=== PATIENT | female | born 1935 | race Caucasian/White ===

== ENCOUNTER 2019-06-29 16:18 | Inpatient (IN) | payer MEDICARE, BC ==
[~2019-06-29] VITALS: Ht 162.6 cm; Wt 97.5 kg
[2019-06-29] MEDS ORDERED: heparin 10,000 units/1 ML INJ IV ONE (17:15)
[2019-06-29] MEDS ORDERED: insulin regular, human 10 units/0.1 ml syringe IV ONE (17:25)
--- NOTE | 2019-06-29 17:33 | NUR ---
PHARMACIST WILL CALL [facility] IN [place] FOR CURRENT MED LIST AND DOSES.
[2019-06-29] MEDS ORDERED: ATOR20TA66 PO (17:40)
[2019-06-29] MEDS ORDERED: HYDR-3964 PO (17:40)
[2019-06-29] MEDS ORDERED: magnesium 2GM in 50ml NS 50 ML IV PRN (18:05)
[2019-06-29] MEDS ORDERED: potassium Cl 20 mEq SR tablet PO PRN ×2 (18:05)
[2019-06-29] MEDS ORDERED: potassium CL 10mEq/100ml bag 100 ML IV PRN ×2 (18:05)
[2019-06-29] MEDS ORDERED: magnesium Cl slow-release 64mg tablet PO PRN (18:05)
[2019-06-29] MEDS ORDERED: magnesium 4gm in 100ml NS 100 ML IV PRN (18:05)
[2019-06-29] MEDS ORDERED: mag hydrox/Alum hydrox/simeth 30ml oral suspension PO PRN (18:05)
[2019-06-29] MEDS ORDERED: acetaminophen 325mg tablet PO PRN (18:05)
[2019-06-29] MEDS ORDERED: heparin 25,000 UNIT/250ml bag 250 ML IV SCH (18:09)
[2019-06-29] MEDS: heparin 25,000 UNIT/250ml bag 250 ML IV SCH (18:13)
[2019-06-29 18:14] LABS: BASOPHILS # (AUTO) 0.1 X10'3 (0-0.2); MEAN PLATELET VOLUME 7.9 FL (7.4-10.4)
[2019-06-29] MEDS ORDERED: glucagon, human recombinant 1mg kit SUBCUT PRN (18:15)
[2019-06-29] MEDS ORDERED: dextrose 50%-water 50ml dispensing syringe IV PRN ×2 (18:15)
[2019-06-29] MEDS ORDERED: MESSAGE TO PHARMACY PO ONE (18:15)
[2019-06-29] MEDS ORDERED: dextrose ORAL solution 15 GM/59 ML bottle PO PRN ×2 (18:15)
[2019-06-29 18:16] LABS: BASOPHILS % (AUTO) 0.3 % (0-1); EOSINOPHILS % (AUTO) 0.1 % (0-6); HEMATOCRIT 39.5 % (35.0-45.0); LYMPHOCYTES # (AUTO) 2.3 X10'3 (1.1-4.8); LYMPHOCYTES % (AUTO) 11.2 % (21-51); MEAN CORPUSCULAR HEMOGLOBIN 27.4 PG (27.0-31.0); MEAN CORPUSCULAR HGB CONC 32.9 g/dL (33.0-36.5); MEAN CORPUSCULAR VOLUME 83.2 FL (78-98); MONOCYTES # (AUTO) 1.3 X10'3 (0-0.9); MONOCYTES % (AUTO) 6.5 % (2-12); NEUTROPHILS # (AUTO) 16.5 X10'3 (1.8-7.7); NEUTROPHILS % (AUTO) 81.9 % (42-75); PLATELET COUNT 286 X10'3 (140-440); RED BLOOD COUNT 4.75 X10'6 (4.20-5.60); RED CELL DISTRIBUTION WIDTH 14.9 % (11.5-14.5); WHITE BLOOD COUNT 20.2 X10'3 (4.5-11.0)
[2019-06-29] MEDS ORDERED: CefTRIAXone 2gm/D5W 50ml 50 ML IV ONE (18:25)
[2019-06-29] MEDS ORDERED: MONT10TA24 PO (18:28)
[2019-06-29] MEDS ORDERED: OMEP-50 PO (18:28)
[2019-06-29 18:48] LABS: PARTIAL THROMBOPLASTIN TIME 54 SECONDS (22-32)
[2019-06-29] MEDS ORDERED: BUPR150T6 PO (18:51)
[2019-06-29 19:11] LABS: CLARITY,URINE SLIGHTLY CLOUDY (Clear); COLOR,URINE YELLOW (Yellow); GLUCOSE, URINE 250 mg/dl (Neg); KETONES,URINE TRACE mg/dl (Neg); LEUKOCYTE ESTERASE ,URINE TRACE (Neg); NITRITES, URINE NEGATIVE (Neg); OCCULT BLOOD,URINE LARGE (Neg); PROTEIN,URINE TRACE mg/dl (Neg); UROBILINOGEN,URINE 0.2 E.U/dL (0.2-1.0)
[2019-06-29 19:18] LABS: UA COLLECTION TYPE FOLEY CATH
[2019-06-29 19:19] LABS: BACTERIA,URINE FEW /HPF (Neg); RBC,URINE 50-100 /HPF (0-2); SQUAMOUS EPITHELIAL CELL,UR FEW /LPF (FEW); WBC,URINE 0-4 /HPF (0-4)
[2019-06-29 19:54] LABS: HEMOGLOBIN A1C 9.2 % (4.5-6.2)
[2019-06-29] MEDS ORDERED: INSU100V9 SQ (20:05)
[2019-06-29] MEDS ORDERED: LOSA100T57 PO (20:05)
[2019-06-29] MEDS ORDERED: DULO60CA65 PO (20:05)
[2019-06-29] MEDS ORDERED: LIRA0.6P2 SUBCUT (20:05)
[2019-06-29] MEDS ORDERED: FLUT1BLS11 PO (20:05)
--- NOTE | 2019-06-29 20:15 | NUR ---
Received report from ED. Pt was admitted with acute CHF, Stemi, SOB. Pt is alert and oriented X2, baseline dementia. Pt is receiving Heparin at therapeutic level (1,000) unit, 3 L of oxygen via NC, her troponin level is elevated (11.38 and 11.70) . Called Dr. Carter and he stated "not to call him with troponin and lactic acid results, he will assess patient tomorrow."
[2019-06-29 20:30] VITALS: BP 129/107
[2019-06-29] MEDS ORDERED: temazepam 15mg capsule PO PRN (21:00)
[2019-06-29 22:00] VITALS: BP 117/59
[2019-06-29] MEDS: insulin glargine (Lantus) pen - multi-dose SQ SCH (23:11)
[2019-06-29] MEDS: insulin Lispro (HumaLOG) vial - multi-dose SQ SCH (23:15)
[2019-06-29] MEDS: docusate sod 100mg capsule PO SCH (23:18)
[2019-06-30 01:21] LABS: BASOPHILS # (AUTO) 0.2 X10'3 (0-0.2); BASOPHILS % (AUTO) 0.9 % (0-1); EOSINOPHILS % (AUTO) 0.1 % (0-6); HEMATOCRIT 38.7 % (35.0-45.0); LYMPHOCYTES # (AUTO) 2.5 X10'3 (1.1-4.8); LYMPHOCYTES % (AUTO) 13.4 % (21-51); MEAN CORPUSCULAR HEMOGLOBIN 27.7 PG (27.0-31.0); MEAN CORPUSCULAR HGB CONC 33.5 g/dL (33.0-36.5); MEAN CORPUSCULAR VOLUME 82.4 FL (78-98); MEAN PLATELET VOLUME 7.8 FL (7.4-10.4); MONOCYTES # (AUTO) 1.4 X10'3 (0-0.9); MONOCYTES % (AUTO) 7.5 % (2-12); NEUTROPHILS # (AUTO) 14.3 X10'3 (1.8-7.7); NEUTROPHILS % (AUTO) 78.1 % (42-75); PLATELET COUNT 287 X10'3 (140-440); RED CELL DISTRIBUTION WIDTH 14.8 % (11.5-14.5); WHITE BLOOD COUNT 18.3 X10'3 (4.5-11.0)
[2019-06-30] MEDS: HYDROcodone/acetaminophen 5mg/325mg tablet PO PRN ×3 (01:26→22:32)
[2019-06-30 02:00] VITALS: BP 131/70
[2019-06-30 02:34] LABS: ALBUMIN 2.9 G/DL (3.4-5.0); ANION GAP 9 (8-16); BLOOD UREA NITROGEN 29 MG/DL (7-18); BUN/CREATININE RATIO 28.2 (6.6-38.0); CALCIUM 9.3 MG/DL (8.5-10.1); CHLORIDE 92 MMOL/L (99-107); CHOL/HDL RATIO 2.4 (0.00-4.99); CHOLESTEROL 169 MG/DL (0-200); CREATININE 1.03 MG/DL (0.40-0.90); GLUCOSE 304 MG/DL (70-104); HDL CHOLESTEROL 71 MG/DL (35-60); LDL CHOLESTEROL 84 MG/DL (50-100); MAGNESIUM 2.1 MG/DL (1.5-2.4); SODIUM 127 MMOL/L (135-145); TRIGLYCERIDES 142 MG/DL (20-135); eGFR 51 ML/MIN
--- NOTE | 2019-06-30 03:09 | NUR ---
Heparin: 00:10 PTT = 48 (Therapeutic Range) Heparin drips remains at 1,000. No changes
[2019-06-30] MEDS: acetaminophen 325mg tablet PO PRN ×2 (04:58→20:12)
[2019-06-30] MEDS: ondansetron/PF 4mg/2ml inj IV PRN (05:19)
[2019-06-30 06:00] VITALS: BP 126/59
--- NOTE | 2019-06-30 06:11 | NUR ---
OANH: MRSA 2-RN Skin Assessment
--- NOTE | 2019-06-30 06:30 | NUR ---
Patient in room PCU 3026. I have received report from REDDY Rosario and had the opportunity to ask questions and assume patient care.
--- NOTE | 2019-06-30 07:03 | NUR ---
Problems reprioritized. Patient report given, questions answered & plan of care reviewed with REDDY García. Pt in stable condition at shift change
[2019-06-30] MEDS: docusate sod 100mg capsule PO SCH ×2 (07:48→20:09)
[2019-06-30] MEDS: metoprolol succinate 25mg (24-HOUR) SR. Tablet PO SCH (07:49)
[2019-06-30] MEDS: lisinopril 10 MG tablet PO SCH (07:49)
[2019-06-30] MEDS: K and/or MAG REPLACEMENT MC SCH (08:00)
[2019-06-30] MEDS: heparin 25,000 UNIT/250ml bag 250 ML IV SCH ×3 (08:14→19:58)
--- NOTE | 2019-06-30 08:15 | NUR ---
Cardiac PTT [address] rate adjust per protocol
[2019-06-30] MEDS: heparin 10,000 units/1 ML INJ IV PRN ×2 (08:27→19:56)
[2019-06-30] MEDS: aspirin 81mg tab.chew PO SCH (08:35)
[2019-06-30] MEDS: atorvastatin 20mg tablet PO SCH (08:35)
[2019-06-30] MEDS: clopidogrel 75mg tablet PO SCH (08:50)
[2019-06-30] MEDS: insulin Lispro (HumaLOG) vial - multi-dose SQ SCH ×3 (08:52→20:00)
[2019-06-30] MEDS: morphine 2 MG/ML inj. syringe IV PRN ×2 (08:58→17:24)
--- NOTE | 2019-06-30 09:37 | NUR ---
Marisa Phipps rm 0162D Daughter is here, and PRN 0.5mg morphine did not help pain. Raquel RN ext [phone] sent to DILCIA Barakat
--- NOTE | 2019-06-30 09:54 | NUR ---
Marisa Phipps Rm 7465L c/o mod pain in abd. PRN MS 0.5mg did not help REDDY García ext [phone] pag4e to Joselito
[2019-06-30] MEDS ORDERED: HYDROmorphone inj. 0.5 MG/0.5 ML DISP.SYRIN IV ONE (10:10)
[2019-06-30 11:00] VITALS: BP 108/46
--- NOTE | 2019-06-30 11:07 | NUR ---
DM consult: Pt with A1c 9.2 just admitted pending physical assessment. Per H&P pt with hx dementia and a poor historian. DM education not appropriate at this time. Will continue to follow and provide DM education prior to discharge if appropriate. Addendum: 06/30/19 at [address] Amended: Links added.
--- NOTE | 2019-06-30 11:32 | NUR ---
Marisa Phipps Rm 5838p Rochepin timed to start tmrw. Do you want a dose now? REDDY García ext [phone] *page to Joselito
[2019-06-30] MEDS: CefTRIAXone 2gm/D5W 50ml 50 ML IV SCH (11:55)
--- NOTE | 2019-06-30 14:09 | NUR ---
PAGER ID: [phone] MESSAGE: REDDY Benitez ext [phone], received critical value: PTT 134, heparin drip stopped, will resume in 2 hours and decrease by 300units/hr at that time per protocol
--- NOTE | 2019-06-30 14:38 | NUR ---
Marisa Hernandez Rm 0656k Based on CT results any change of plan? Daughter leaving soon. REDDY García ext [phone] page to Joselito
[2019-06-30 15:39] VITALS: BP 128/69
[2019-06-30] MEDS: vancomycin/NS 1 GM ADD-VANTAGE 250 ML IV SCH ×2 (17:08→18:20)
--- NOTE | 2019-06-30 17:29 | NUR ---
Sourav Rodriguez rm 4319u pt states that you said he could discharge home. REDDY García ext [phone]
[2019-06-30 18:00] VITALS: BP 93/48
--- NOTE | 2019-06-30 18:43 | NUR ---
Problems reprioritized. Patient report given, questions answered & plan of care reviewed with REDDY Irwin.
--- NOTE | 2019-06-30 18:44 | NUR ---
Patient in room PCU 3026. I have received report from Raquel BLAKELY and had the opportunity to ask questions and assume patient care.
[2019-06-30 22:00] VITALS: BP 109/60
[2019-06-30] MEDS ORDERED: vancomycin/NS 1 GM ADD-VANTAGE 250 ML IV SCH (22:20)
[2019-06-30] MEDS: insulin glargine (Lantus) pen - multi-dose SQ SCH (23:03)
[2019-07-01 02:00] VITALS: BP 118/54
[2019-07-01] MEDS: morphine 2 MG/ML inj. syringe IV PRN ×3 (02:15→16:09)
[2019-07-01 02:52] LABS: ALBUMIN 2.6 G/DL (3.4-5.0); ANION GAP 8 (8-16); BLOOD UREA NITROGEN 23 MG/DL (7-18); BUN/CREATININE RATIO 29.9 (6.6-38.0); CALCIUM 9.3 MG/DL (8.5-10.1); CHLORIDE 99 MMOL/L (99-107); CREATININE 0.77 MG/DL (0.40-0.90); GLUCOSE 208 MG/DL (70-104); MAGNESIUM 2.2 MG/DL (1.5-2.4); SODIUM 136 MMOL/L (135-145); TOTAL CARBON DIOXIDE 28.9 MMOL/L (24-32); eGFR 72 ML/MIN
[2019-07-01 02:55] LABS: BASOPHILS # (AUTO) 0.1 X10'3 (0-0.2); BASOPHILS % (AUTO) 0.6 % (0-1); EOSINOPHILS # (AUTO) 0.1 X10'3 (0-0.9); EOSINOPHILS % (AUTO) 0.8 % (0-6); HEMATOCRIT 38.1 % (35.0-45.0); HEMOGLOBIN 12.5 g/dl (12.0-16.0); LYMPHOCYTES # (AUTO) 2.8 X10'3 (1.1-4.8); LYMPHOCYTES % (AUTO) 24.2 % (21-51); MEAN CORPUSCULAR HEMOGLOBIN 27.5 PG (27.0-31.0); MEAN CORPUSCULAR HGB CONC 32.8 g/dL (33.0-36.5); MEAN CORPUSCULAR VOLUME 83.7 FL (78-98); MEAN PLATELET VOLUME 8.5 FL (7.4-10.4); MONOCYTES % (AUTO) 8.5 % (2-12); NEUTROPHILS # (AUTO) 7.6 X10'3 (1.8-7.7); NEUTROPHILS % (AUTO) 65.9 % (42-75); PLATELET COUNT 248 X10'3 (140-440); RED BLOOD COUNT 4.55 X10'6 (4.20-5.60); RED CELL DISTRIBUTION WIDTH 14.7 % (11.5-14.5); WHITE BLOOD COUNT 11.5 X10'3 (4.5-11.0)
[2019-07-01] MEDS: heparin 10,000 units/1 ML INJ IV PRN (03:02)
[2019-07-01] MEDS: heparin 25,000 UNIT/250ml bag 250 ML IV SCH ×2 (03:08→04:54)
[2019-07-01] MEDS: HYDROcodone/acetaminophen 5mg/325mg tablet PO PRN (04:52)
[2019-07-01 06:00] VITALS: BP 136/73
--- NOTE | 2019-07-01 06:23 | NUR ---
Problems reprioritized. Patient report given, questions answered & plan of care reviewed with Walker BLAKELY.
--- NOTE | 2019-07-01 06:31 | NUR ---
Patient in room PCU 3026. I have received report from Alida BLAKELY and had the opportunity to ask questions and assume patient care.
--- NOTE | 2019-07-01 07:38 | NUR ---
Page sent to Dr. Yee: PAGER ID: [phone] MESSAGE: [phone] Marisa Phipps: Can we get RT treatments ordered? Patient is SOB and requesting a treatment. Thanks, Peggy [phone]
[2019-07-01] MEDS ORDERED: CefTRIAXone 2gm/D5W 50ml 50 ML IV SCH (08:00)
[2019-07-01] MEDS: K and/or MAG REPLACEMENT MC SCH (08:00)
[2019-07-01] MEDS: ondansetron/PF 4mg/2ml inj IV PRN (08:11)
[2019-07-01] MEDS: CefTRIAXone 2gm/D5W 50ml 50 ML IV SCH (08:16)
[2019-07-01] MEDS: insulin Lispro (HumaLOG) vial - multi-dose SQ SCH ×2 (08:21→13:27)
[2019-07-01] MEDS: docusate sod 100mg capsule PO SCH ×2 (08:24→19:41)
[2019-07-01] MEDS: clopidogrel 75mg tablet PO SCH (08:25)
[2019-07-01] MEDS: metoprolol succinate 25mg (24-HOUR) SR. Tablet PO SCH (08:25)
[2019-07-01] MEDS: atorvastatin 20mg tablet PO SCH (08:26)
[2019-07-01] MEDS: lisinopril 10 MG tablet PO SCH (08:26)
[2019-07-01] MEDS: pantoprazole 40mg Tablet.DR PO SCH ×2 (08:26→10:00)
[2019-07-01] MEDS ORDERED: furosemide 20 MG/2 ML vial IV ONE (08:30)
[2019-07-01] MEDS: aspirin 81mg tab.chew PO SCH (08:30)
[2019-07-01] MEDS ORDERED: sennosides 8.6mg tablet PO ONE (09:05)
[2019-07-01] MEDS ORDERED: HYDROcodone/acetaminophen 5mg/325mg tablet PO PRN (09:10)
[2019-07-01] MEDS ORDERED: diltiazem 30mg tablet PO ONE (09:45)
--- NOTE | 2019-07-01 09:45 | NUR ---
Patient converted to A-Fib. Dr. Yee notified and one time dose Cardizem ordered PO.
[2019-07-01] MEDS ORDERED: FLUTICASONE PROPION IH SCH (09:55)
[2019-07-01] MEDS ORDERED: SALMETEROL IH SCH (09:55)
[2019-07-01] MEDS: HYDROcodone/acetaminophen 10/325mg tab PO PRN ×2 (10:43→16:34)
[2019-07-01] MEDS: buPROPion SR 150mg tablet PO SCH (10:50)
[2019-07-01] MEDS: duloxetine 30mg CAPSULE.DR PO SCH (10:50)
[2019-07-01] MEDS: VANCOmycin 1250MG/NS 250ml Bag 250 ML IV SCH ×2 (10:57→23:06)
[2019-07-01 11:00] VITALS: BP 135/69
--- NOTE | 2019-07-01 12:03 | NUR ---
Page Dr. Yee PAGER ID: [phone] MESSAGE: Room 3026B Marisa Miranda: Patient heart rhythm has converted to sinus rhythm and her heart rate is in the 80's, fyi. Thank you, Ashley ext [phone].
[2019-07-01 15:00] VITALS: BP 132/58
--- NOTE | 2019-07-01 17:17 | NUR ---
Page sent to Dr. Yee: PAGER ID: [phone] MESSAGE: [phone] Marisa Miranda: Patient's daughter is concerned about her pain, asking for more/different pain meds. Peggy Singleton [phone] Addendum: 07/01/19 at 1719 by Peggy Gamez RN Spoke to Dr. Yee, she is hesitant on adding more pain medications at this time. She said she will come by to talk to the patient and her daughter before the end of shift if she has time. Will inform patient and continue to monitor.
[2019-07-01] MEDS ORDERED: VANCOmycin 1250MG/NS 250ml Bag 250 ML IV SCH (18:00)
[2019-07-01] MEDS ORDERED: methylnaltrexone br 12mg/0.6ml inj***SubQ only SQ ONE (18:15)
--- NOTE | 2019-07-01 18:23 | NUR ---
Problems reprioritized. Patient report given, questions answered & plan of care reviewed with Estefany BLAKELY. Patient stable at time of transfer of care.
--- NOTE | 2019-07-01 18:33 | NUR ---
[place] documentation: I have reviewed and agree with all interventions, assessments performed and documented by Ashley BLAKELY. [place] Medication Administration: For this medication-pass time frame, all medication were reviewed, dispensed, administered and documented per hospital policy by Ashley BLAKELY
[2019-07-01 19:02] VITALS: BP 143/74
[2019-07-01] MEDS: lactobacillus rhamnosus 10,000 MMU CELLS/CAPSULE PO SCH (19:41)
[2019-07-01] MEDS: heparin, porcine 5000 units/ml vial SQ SCH (19:44)
[2019-07-01] MEDS: albuterol 2.5 MG/3 ML nebule NEB PRN (19:57)
[2019-07-01] MEDS: budesonide 0.5mg/2ml UD nebule IH SCH (19:58)
[2019-07-01] MEDS: insulin glargine (Lantus) pen - multi-dose SQ SCH (21:31)
[2019-07-01 22:00] VITALS: BP 103/50
--- NOTE | 2019-07-02 00:35 | NUR ---
PT SOMEHOW UNHOOKED HER IV LINE WHILE ABX VANCO WAS RUNNING. UNABLE TO TELL HOW MUCH SHE ACTUALLY REC'D. NOTIFIED.
[2019-07-02 02:52] VITALS: BP 104/59
[2019-07-02 05:07] LABS: BASOPHILS % (AUTO) 0.3 % (0-1); EOSINOPHILS # (AUTO) 0.2 X10'3 (0-0.9); EOSINOPHILS % (AUTO) 2.5 % (0-6); HEMATOCRIT 35.9 % (35.0-45.0); LYMPHOCYTES # (AUTO) 2.2 X10'3 (1.1-4.8); MEAN CORPUSCULAR HEMOGLOBIN 27.9 PG (27.0-31.0); MEAN CORPUSCULAR HGB CONC 33.4 g/dL (33.0-36.5); MEAN CORPUSCULAR VOLUME 83.6 FL (78-98); MONOCYTES # (AUTO) 0.8 X10'3 (0-0.9); MONOCYTES % (AUTO) 9.4 % (2-12); NEUTROPHILS # (AUTO) 5.4 X10'3 (1.8-7.7); NEUTROPHILS % (AUTO) 62.8 % (42-75); PLATELET COUNT 228 X10'3 (140-440); RED CELL DISTRIBUTION WIDTH 14.8 % (11.5-14.5); WHITE BLOOD COUNT 8.7 X10'3 (4.5-11.0)
[2019-07-02] MEDS: HYDROcodone/acetaminophen 10/325mg tab PO PRN ×3 (05:24→22:00)
[2019-07-02 05:25] LABS: ALBUMIN 2.3 G/DL (3.4-5.0); ANION GAP 9 (8-16); BLOOD UREA NITROGEN 15 MG/DL (7-18); BUN/CREATININE RATIO 23.1 (6.6-38.0); CHLORIDE 100 MMOL/L (99-107); CREATININE 0.65 MG/DL (0.40-0.90); GLUCOSE 174 MG/DL (70-104); MAGNESIUM 1.9 MG/DL (1.5-2.4); POTASSIUM 3.6 MMOL/L (3.5-5.1); SODIUM 136 MMOL/L (135-145); eGFR 87 ML/MIN
[2019-07-02 06:00] VITALS: BP 145/86
--- NOTE | 2019-07-02 06:00 | NUR ---
notified of 4 beat run of vtach. will continue to monitor
--- NOTE | 2019-07-02 06:20 | NUR ---
Problems reprioritized. Patient report given, questions answered & plan of care reviewed with Peggy and Ashley RNs.
--- NOTE | 2019-07-02 06:25 | NUR ---
Patient in room PCU 3026. I have received report from Estefany BLAKELY and had the opportunity to ask questions and assume patient care.
[2019-07-02] MEDS: morphine 2 MG/ML inj. syringe IV PRN ×2 (07:39→15:13)
[2019-07-02] MEDS: heparin, porcine 5000 units/ml vial SQ SCH ×2 (07:39→22:00)
[2019-07-02] MEDS: clopidogrel 75mg tablet PO SCH (07:40)
[2019-07-02] MEDS: pantoprazole 40mg Tablet.DR PO SCH ×2 (07:40→08:00)
[2019-07-02] MEDS: docusate sod 100mg capsule PO SCH ×2 (07:40→21:59)
[2019-07-02] MEDS: atorvastatin 20mg tablet PO SCH (07:40)
[2019-07-02] MEDS: duloxetine 30mg CAPSULE.DR PO SCH (07:40)
[2019-07-02] MEDS: montelukast 10mg tablet PO SCH (07:40)
[2019-07-02] MEDS: metoprolol succinate 25mg (24-HOUR) SR. Tablet PO SCH (07:40)
[2019-07-02] MEDS: buPROPion SR 150mg tablet PO SCH (07:40)
[2019-07-02] MEDS: lisinopril 10 MG tablet PO SCH (07:40)
[2019-07-02] MEDS: lactobacillus rhamnosus 10,000 MMU CELLS/CAPSULE PO SCH ×2 (07:40→21:58)
[2019-07-02] MEDS: furosemide 20 MG/2 ML vial IV SCH (07:41)
[2019-07-02] MEDS: CefTRIAXone 2gm/D5W 50ml 50 ML IV SCH (07:41)
[2019-07-02] MEDS: ondansetron/PF 4mg/2ml inj IV PRN ×2 (07:41→15:12)
[2019-07-02] MEDS: aspirin 81mg tab.chew PO SCH (07:43)
[2019-07-02] MEDS: K and/or MAG REPLACEMENT MC SCH (08:00)
[2019-07-02] MEDS: insulin Lispro (HumaLOG) vial - multi-dose SQ SCH ×2 (08:36→12:42)
[2019-07-02] MEDS: budesonide 0.5mg/2ml UD nebule IH SCH ×2 (09:14→19:26)
[2019-07-02] MEDS: albuterol 2.5 MG/3 ML nebule NEB PRN ×2 (09:15→19:26)
[2019-07-02 11:00] VITALS: BP 119/56
[2019-07-02] MEDS: VANCOmycin 1250MG/NS 250ml Bag 250 ML IV SCH (12:36)
[2019-07-02 15:00] VITALS: BP 157/58
[2019-07-02 18:00] VITALS: BP 115/58
[2019-07-02] MEDS: insulin glargine (Lantus) pen - multi-dose SQ SCH (21:56)
[2019-07-02] MEDS ORDERED: VANCOMYCIN LEVEL IV ONE (22:30)
[2019-07-02 22:45] VITALS: BP 111/47
--- NOTE | 2019-07-03 00:54 | NUR ---
pt appears to be talking, singing, and/or screaming in her sleep. eyes closed, no signs of distress noted.
[2019-07-03 02:30] VITALS: BP 104/48
[2019-07-03] MEDS: HYDROcodone/acetaminophen 10/325mg tab PO PRN ×2 (04:17→13:45)
[2019-07-03] MEDS ORDERED: diltiazem 5mg/ml 5ml inj. IV ONE (04:50)
--- NOTE | 2019-07-03 05:24 | NUR ---
pt drank some water, had a coughing fit. shortly afterwards [email or web address] notified this RN of afib in 140s-160s. pt complained of shortness of breath. pt is also very anxious. calming measures tried. after SOB continued, MD was notified with orders for 10mg IV Cardizem push. med administered. More calming measures. RT at bedside to assess, feels it is cardiac related and no breathing tx needed at this time. pt HR down to low to mid 100s after med given.
[2019-07-03 05:37] LABS: BASOPHILS % (AUTO) 0.3 % (0-1); EOSINOPHILS # (AUTO) 0.2 X10'3 (0-0.9); EOSINOPHILS % (AUTO) 2.1 % (0-6); HEMATOCRIT 40.9 % (35.0-45.0); HEMOGLOBIN 13.5 g/dl (12.0-16.0); LYMPHOCYTES % (AUTO) 35.7 % (21-51); MEAN CORPUSCULAR HEMOGLOBIN 27.8 PG (27.0-31.0); MEAN CORPUSCULAR HGB CONC 33.1 g/dL (33.0-36.5); MEAN CORPUSCULAR VOLUME 84.2 FL (78-98); MEAN PLATELET VOLUME 8.5 FL (7.4-10.4); MONOCYTES # (AUTO) 0.8 X10'3 (0-0.9); MONOCYTES % (AUTO) 9.2 % (2-12); NEUTROPHILS # (AUTO) 4.4 X10'3 (1.8-7.7); NEUTROPHILS % (AUTO) 52.7 % (42-75); PLATELET COUNT 277 X10'3 (140-440); RED BLOOD COUNT 4.86 X10'6 (4.20-5.60); RED CELL DISTRIBUTION WIDTH 14.8 % (11.5-14.5); WHITE BLOOD COUNT 8.4 X10'3 (4.5-11.0)
[2019-07-03 05:45] LABS: ALBUMIN 2.6 G/DL (3.4-5.0); ANION GAP 14 (8-16); BLOOD UREA NITROGEN 11 MG/DL (7-18); BUN/CREATININE RATIO 15.3 (6.6-38.0); CALCIUM 8.9 MG/DL (8.5-10.1); CHLORIDE 98 MMOL/L (99-107); CREATININE 0.72 MG/DL (0.40-0.90); GLUCOSE 186 MG/DL (70-104); MAGNESIUM 1.8 MG/DL (1.5-2.4); SODIUM 139 MMOL/L (135-145); TOTAL CARBON DIOXIDE 26.8 MMOL/L (24-32); eGFR 78 ML/MIN
[2019-07-03 06:00] VITALS: BP 120/57
--- NOTE | 2019-07-03 06:09 | NUR ---
Patient in room PCU 3026. I have received report from Estefany BLAKELY and had the opportunity to ask questions and assume patient care.
--- NOTE | 2019-07-03 06:30 | NUR ---
Problems reprioritized. Patient report given, questions answered & plan of care reviewed with Peggy and Ashley RNs.
[2019-07-03] MEDS: atorvastatin 20mg tablet PO SCH (07:25)
[2019-07-03] MEDS: pantoprazole 40mg Tablet.DR PO SCH ×2 (07:26→07:37)
[2019-07-03] MEDS: montelukast 10mg tablet PO SCH (07:26)
[2019-07-03] MEDS: lactobacillus rhamnosus 10,000 MMU CELLS/CAPSULE PO SCH ×2 (07:26→23:23)
[2019-07-03] MEDS: clopidogrel 75mg tablet PO SCH (07:26)
[2019-07-03] MEDS: duloxetine 30mg CAPSULE.DR PO SCH (07:27)
[2019-07-03] MEDS: buPROPion SR 150mg tablet PO SCH (07:27)
[2019-07-03] MEDS: CefTRIAXone 2gm/D5W 50ml 50 ML IV SCH (07:27)
[2019-07-03] MEDS: furosemide 20 MG/2 ML vial IV SCH (07:27)
[2019-07-03] MEDS: lisinopril 10 MG tablet PO SCH (07:27)
[2019-07-03] MEDS: docusate sod 100mg capsule PO SCH ×2 (07:27→20:00)
[2019-07-03] MEDS: metoprolol succinate 25mg (24-HOUR) SR. Tablet PO SCH (07:27)
[2019-07-03] MEDS: aspirin 81mg tab.chew PO SCH (07:30)
[2019-07-03] MEDS: heparin, porcine 5000 units/ml vial SQ SCH ×2 (07:34→20:00)
[2019-07-03] MEDS: K and/or MAG REPLACEMENT MC SCH (08:00)
[2019-07-03] MEDS: budesonide 0.5mg/2ml UD nebule IH SCH (08:23)
[2019-07-03] MEDS: insulin Lispro (HumaLOG) vial - multi-dose SQ SCH ×3 (09:02→20:30)
[2019-07-03] MEDS ORDERED: magnesium 4gm in 100ml NS 100 ML IV PRN (09:25)
[2019-07-03] MEDS ORDERED: magnesium Cl slow-release 64mg tablet PO PRN (09:25)
[2019-07-03] MEDS ORDERED: potassium CL 10mEq/100ml bag 100 ML IV PRN (09:25)
--- NOTE | 2019-07-03 09:55 | NUR ---
Nutrition consult RE "pt/family ed given pt DM but not eaten in few days": Pt AOx1 w/ dementia at baseline per MD note. LBM 10/20 w/ abdominal pain noted yesterday as well. Pt PO 0% past 3 days since admit w/ metabolic encephalopathy. Ensure pudding TIDWM added for additional needs w/ low PO. Pt is on heart healthy diet; no need for DM restriction at this time given poor po. RD d/w RN regarding potential for appetite stimulant per MD approval. K 3.0 w/ K replacement ordered pending verification today per EMR. Pt not appropriate for DM ed at this time given DX and PO heavily dependent on pt mental status as well. Will continue to monitor. Rec: 1. IF PO remains low; advance to regular diet per MD 2. ensure pudding TIDWM; encourage PO 3. appetite stimulant per MD approval 4. weekly wts Addendum: 07/03/19 at [address] Amended: Links added.
[2019-07-03] MEDS: lactose-reduced food (Ensure High Protein) 237ml bottle PO SCH ×3 (13:00→19:00)
[2019-07-03] MEDS: potassium Cl 20 mEq SR tablet PO PRN ×2 (13:47→17:59)
[2019-07-03 15:00] VITALS: BP 98/46
--- NOTE | 2019-07-03 16:40 | NUR ---
Problems reprioritized. Patient report given, questions answered & plan of care reviewed with Danica BLAKELY. Patient stable at transfer of care.
--- NOTE | 2019-07-03 16:43 | NUR ---
Patient in room PCU 3026F. I have received report from Peggy BLAKELY and had the opportunity to ask questions and assume patient care.
[2019-07-03 18:00] VITALS: BP 111/65
--- NOTE | 2019-07-03 18:49 | NUR ---
Problems reprioritized. Patient report given, questions answered & plan of care reviewed with Raul BLAKELY.
[2019-07-03] MEDS: insulin glargine (Lantus) pen - multi-dose SQ SCH (21:00)
[2019-07-03 23:00] VITALS: BP 112/53
[2019-07-03] MEDS: dronabinol 2.5mg capsule PO SCH (23:24)
[2019-07-04] MEDS: HYDROcodone/acetaminophen 10/325mg tab PO PRN (01:29)
[2019-07-04 03:00] VITALS: BP 102/42
[2019-07-04 05:06] LABS: BASOPHILS % (AUTO) 0.4 % (0-1); EOSINOPHILS # (AUTO) 0.7 X10'3 (0-0.9); EOSINOPHILS % (AUTO) 7.6 % (0-6); HEMATOCRIT 37.7 % (35.0-45.0); HEMOGLOBIN 12.6 g/dl (12.0-16.0); LYMPHOCYTES # (AUTO) 2.9 X10'3 (1.1-4.8); LYMPHOCYTES % (AUTO) 31.8 % (21-51); MEAN CORPUSCULAR HEMOGLOBIN 27.7 PG (27.0-31.0); MEAN CORPUSCULAR HGB CONC 33.3 g/dL (33.0-36.5); MEAN CORPUSCULAR VOLUME 83.1 FL (78-98); MEAN PLATELET VOLUME 8.1 FL (7.4-10.4); MONOCYTES # (AUTO) 1.1 X10'3 (0-0.9); MONOCYTES % (AUTO) 12.1 % (2-12); NEUTROPHILS # (AUTO) 4.3 X10'3 (1.8-7.7); NEUTROPHILS % (AUTO) 48.1 % (42-75); PLATELET COUNT 261 X10'3 (140-440); RED BLOOD COUNT 4.54 X10'6 (4.20-5.60); RED CELL DISTRIBUTION WIDTH 14.7 % (11.5-14.5)
[2019-07-04 05:21] LABS: ALBUMIN 2.4 G/DL (3.4-5.0); ANION GAP 14 (8-16); BLOOD UREA NITROGEN 8 MG/DL (7-18); BUN/CREATININE RATIO 12.9 (6.6-38.0); CHLORIDE 99 MMOL/L (99-107); CREATININE 0.62 MG/DL (0.40-0.90); GLUCOSE 162 MG/DL (70-104); MAGNESIUM 1.8 MG/DL (1.5-2.4); POTASSIUM 3.1 MMOL/L (3.5-5.1); SODIUM 140 MMOL/L (135-145); TOTAL CARBON DIOXIDE 27.5 MMOL/L (24-32); eGFR > 90 ML/MIN
--- NOTE | 2019-07-04 06:23 | NUR ---
Patient in room PCU 3025. I have received report from Raul BLAKELY and had the opportunity to ask questions and assume patient care.
[2019-07-04 07:14] VITALS: BP 99/61
[2019-07-04] MEDS: pantoprazole 40mg Tablet.DR PO SCH (07:32)
[2019-07-04] MEDS: docusate sod 100mg capsule PO SCH (07:34)
[2019-07-04] MEDS: lactobacillus rhamnosus 10,000 MMU CELLS/CAPSULE PO SCH (07:37)
[2019-07-04] MEDS: furosemide 20 MG/2 ML vial IV SCH (07:37)
[2019-07-04] MEDS: montelukast 10mg tablet PO SCH (07:38)
[2019-07-04] MEDS: CefTRIAXone 2gm/D5W 50ml 50 ML IV SCH (07:38)
[2019-07-04] MEDS: atorvastatin 20mg tablet PO SCH (07:38)
[2019-07-04] MEDS: clopidogrel 75mg tablet PO SCH (07:38)
[2019-07-04] MEDS: K and/or MAG REPLACEMENT MC SCH (07:38)
[2019-07-04] MEDS: duloxetine 30mg CAPSULE.DR PO SCH (07:38)
[2019-07-04] MEDS: buPROPion SR 150mg tablet PO SCH (07:39)
[2019-07-04] MEDS: metoprolol succinate 25mg (24-HOUR) SR. Tablet PO SCH (07:39)
[2019-07-04] MEDS: heparin, porcine 5000 units/ml vial SQ SCH (07:39)
[2019-07-04] MEDS: lisinopril 10 MG tablet PO SCH (07:39)
[2019-07-04] MEDS: potassium Cl 20 mEq SR tablet PO PRN ×2 (07:40→13:55)
[2019-07-04] MEDS: budesonide 0.5mg/2ml UD nebule IH SCH (08:41)
[2019-07-04] MEDS: albuterol 2.5 MG/3 ML nebule NEB PRN (08:41)
[2019-07-04] MEDS: insulin Lispro (HumaLOG) vial - multi-dose SQ SCH ×2 (10:17→14:41)
[2019-07-04 11:00] VITALS: BP 116/44
[2019-07-04] MEDS: aspirin 81mg tab.chew PO SCH (11:24)
[2019-07-04] MEDS: dronabinol 2.5mg capsule PO SCH (11:24)
[2019-07-04 15:00] VITALS: BP 99/42
--- NOTE | 2019-07-04 16:01 | NUR ---
DCed PIV L wrist. Canula intact. No bleeding, applied gauze pressure bandage and coban. DCed L brachial PIV. Canula intact. No bleeding. Applied gauze pressure bandage and coban. PT tolerated well. Good cap refill on left hand.
--- NOTE | 2019-07-04 16:24 | NUR ---
Patient picked up by Laura to transfer to [facility]. Daughter at [facility], [facility].
== END 2019-07-04 16:10 | DRG 871 ==
LOC: ER 16:18 → ED HOLD 18:03 → PCU 3S 20:20
PROVIDERS: ADMIT Internal Medicine; ATTEND Family Medicine
DX: A41.9 Sepsis, unspecified organism (principal); I50.21 Acute systolic (congestive) heart failure; G93.41 Metabolic encephalopathy; J18.9 Pneumonia, unspecified organism; I21.4 Non-ST elevation (NSTEMI) myocardial infarction; N39.0 Urinary tract infection, site not specified; E87.1 Hypo-osmolality and hyponatremia; J44.1 Chronic obstructive pulmonary disease with (acute) exacerbation; J44.0 Chronic obstructive pulmonary disease with (acute) lower respiratory infection; I48.91 Unspecified atrial fibrillation; E66.9 Obesity, unspecified; E87.6 Hypokalemia; G30.9 Alzheimer's disease, unspecified; F02.80 Dementia in other diseases classified elsewhere, unspecified severity, without behavioral disturbance, psychotic disturbance, mood disturbance, and anxiety; R13.10 Dysphagia, unspecified; K59.00 Constipation, unspecified; E11.65 Type 2 diabetes mellitus with hyperglycemia; Z66 Do not resuscitate; F32.9 Major depressive disorder, single episode, unspecified; B96.4 Proteus (mirabilis) (morganii) as the cause of diseases classified elsewhere; L89.152 Pressure ulcer of sacral region, stage 2; Z79.82 Long term (current) use of aspirin; Z79.899 Other long term (current) drug therapy; Z88.8 Allergy status to other drugs, medicaments and biological substances; Z79.02 Long term (current) use of antithrombotics/antiplatelets; Z85.3 Personal history of malignant neoplasm of breast; Z85.038 Personal history of other malignant neoplasm of large intestine; Z90.49 Acquired absence of other specified parts of digestive tract; Z90.10 Acquired absence of unspecified breast and nipple; Z68.36 Body mass index [BMI] 36.0-36.9, adult
CPT/HCPCS: 36415; 70450; 71250; 74176; 80048; 80061; 81001; 82948; 83036; 83605; 83735; 83880; 84145; 84484; 85025; 85610; 85651; 85730; 87040; 87077; 87081; 87088; 87186; 92508; 92616; 93005; 93306; 94640; 94760; 97110; 97162; 97530; 99291; G0378; J0696; J1170; J1644; J1815; J1940; J2212; J2270; J2405; J3370; J3490; J7626; Q0167